=== PATIENT | male | born 1975 | race American Indian/Alaskan Native ===

== ENCOUNTER 2019-10-14 06:44 | Inpatient (IN) | payer OTHER ==
[2019-10-14] MEDS ORDERED: SODIUM CHLORIDE 0.9% 1000 ML 1,000 ML IV ONE (08:24)
[2019-10-14] MEDS ORDERED: INSULIN REGULAR, HUMAN 100 UNITS/1 ML IV ONE (08:24)
--- NOTE | 2019-10-14 08:32 | Emergency Department Report ---
ED General Adult HPI - General Chief complaint: Hyperglycemia Stated complaint: HIGH SUGAR Time Seen by Provider: 10/14/19 08:12 Source: patient Mode of arrival: Ambulatory Limitations: No Limitations - History of Present Illness Initial comments: 43 year old male with a past medical history of asthma and diabetes (on insulin) presents to the hospital with complaints of high blood sugar and medication noncompliance. Patient states he takes Humalog 25-30 units tid (sliding scale) and Levemir 40 units qhs. Yesterday patient only had a Humalog a.m. dose and did not have any of his other medication throughout the day. Patient states he went to work and forgot to bring his insulin. He tried a compensate by not eating all day. This evening patient admits to a lot of junk food use. Patient suspect that his sugar was high because he was being a lot and feeling thirsty. He denies dysuria or pain. He had 1-2 episodes of vomiting yesterday. 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 Pt denies being with the other patient. However the other patient informed us that they were together at the scene and was able to provide his name. Pt has his insulin but states he would need a refill soon. Patient states he is unable to follow up with his PMD due to recent loss of his insurance. - Related Data Allergies Allergy/AdvReac Type Severity Reaction Status Date / Time No Known Allergies Allergy Unverified 10/14/19 07:00 ED Review of Systems ROS: Stated complaint: HIGH SUGAR Other details as noted in HPI Comment: All other systems reviewed and negative ED Past Medical Hx - Past Medical History Previous Medical History?: Yes Hx Diabetes: Yes - Surgical History Past Surgical History?: Yes - Social History Smoking Status: Never Smoker Substance Use Type: None ED Physical Exam - General Limitations: No Limitations - Other Other exam information: General: No limitations, patient is alert in no acute distress Head exam: Atraumatic, normocephalic Eyes exam: Normal appearance, pupils equal reactive to light, extraocular movements intact ENT: Moist mucous membrane, normal oropharynx Neck exam: Normal inspection, full range of motion, no meningismus nontender Respiratory exam: Clear to auscultation bilateral, no wheezes, rales, crackles Cardiovascular: Normal rate and rhythm, normal heart sounds Abdomen: Soft, nondistended, and nontender, with normal bowel sounds, no rebound, or guarding Extremity: Full range of motion normal inspection no deformity Back: Normal Inspection, full range of motion, no tenderness Neurologic: Alert, oriented x3, cranial nerves intact, no motor or sensory deficit Psychiatric: normal affect, normal mood Skin: Warm, dry, intact ED Course Vital Signs 10/14/19 10/14/19 10/14/19 06:57 08:22 09:38 Temperature 98.3 F 98.4 F Pulse Rate 137 H 126 H Respiratory 18 18 Rate Blood Pressure 119/77 Blood Pressure 150/91 [Right] O2 Sat by Pulse 91 95 Oximetry 10/14/19 12:09 Temperature Pulse Rate 107 H Respiratory 16 Rate Blood Pressure Blood Pressure 136/87 [Right] O2 Sat by Pulse 99 Oximetry - Reevaluation(s) Reevaluation #1: 10/14/19 09:48 pt informed of + UDs for cocaine admits to cocaine use last night states went to the bathroom at the [facility] to urinate then passed out. He was attending on taken his insulin after he got out the bathroom but was confused. EMS did report that he refuses hospital transport and therefore they just brought his process treater. Patient states he can't recall refusing transport and states he was confused. ED Medical Decision Making - Lab Data Result diagrams: 10/14/19 08:35 10/14/19 08:35 Lab Results 10/14/19 10/14/19 10/14/19 Range/Units 07:05 08:23 08:35 WBC 18.2 H (4.5-11.0) K/mm3 RBC 5.74 H (3.65-5.03) M/mm3 Hgb 13.5 (11.8-15.2) gm/dl Hct 43.4 (35.5-45.6) % MCV 76 L (84-94) fl MCH 23 L (28-32) pg MCHC 31 L (32-34) % RDW 16.2 H (13.2-15.2) % Plt Count 388 (140-440) K/mm3 Lymph % (Auto) 4.9 L (13.4-35.0) % [place] % (Auto) 7.1 (0.0-7.3) % Eos % (Auto) 0.1 (0.0-4.3) % Baso % (Auto) 0.3 (0.0-1.8) % Lymph # 0.9 L (1.2-5.4) K/mm3 [place] # 1.3 H (0.0-0.8) K/mm3 Eos # 0.0 (0.0-0.4) K/mm3 Baso # 0.0 (0.0-0.1) K/mm3 Seg Neutrophils % 87.6 H (40.0-70.0) % Seg Neutrophils # 16.0 H (1.8-7.7) K/mm3 VBG pH (7.320-7.420) Sodium (137-145) mmol/L Potassium (3.6-5.0) mmol/L Chloride (98-107) mmol/L Carbon Dioxide (22-30) mmol/L Anion Gap mmol/L BUN (9-20) mg/dL Creatinine (0.8-1.5) mg/dL Estimated GFR ml/min BUN/Creatinine Ratio % Glucose (75-100) mg/dL POC Glucose 366 H 438 H (70-105) Ketones Quantitative (Negative) Calcium (8.4-10.2) mg/dL Total Creatine Kinase (55-170) units/L Troponin T (0.00-0.029) ng/mL Urine Color (Yellow) Urine Turbidity (Clear) Urine pH (5.0-7.0) Ur Specific [place] (1.003-1.030) Urine Protein (Negative) mg/dL Urine Glucose (UA) (Negative) mg/dL Urine Ketones (Negative) mg/dL Urine Blood (Negative) Urine Nitrite (Negative) Urine Bilirubin (Negative) Urine Urobilinogen (<2.0) mg/dL Ur Leukocyte Esterase (Negative) Urine WBC (Auto) (0.0-6.0) /HPF Urine RBC (Auto) (0.0-6.0) /HPF Urine Bacteria (Auto) (Negative) /HPF Urine Mucus /HPF Urine Opiates Screen Urine Methadone Screen Ur Barbiturates Screen Ur Phencyclidine Scrn Ur Amphetamines Screen U Benzodiazepines Scrn Urine Cocaine Screen U Marijuana (THC) Screen Drugs of Abuse Note 10/14/19 10/14/19 10/14/19 Range/Units 08:35 08:35 08:35 WBC (4.5-11.0) K/mm3 RBC (3.65-5.03) M/mm3 Hgb (11.8-15.2) gm/dl Hct (35.5-45.6) % MCV (84-94) fl MCH (28-32) pg MCHC (32-34) % RDW (13.2-15.2) % Plt Count (140-440) K/mm3 Lymph % (Auto) (13.4-35.0) % [place] % (Auto) (0.0-7.3) % Eos % (Auto) (0.0-4.3) % Baso % (Auto) (0.0-1.8) % Lymph # (1.2-5.4) K/mm3 [place] # (0.0-0.8) K/mm3 Eos # (0.0-0.4) K/mm3 Baso # (0.0-0.1) K/mm3 Seg Neutrophils % (40.0-70.0) % Seg Neutrophils # (1.8-7.7) K/mm3 VBG pH 7.320 (7.320-7.420) Sodium 138 (137-145) mmol/L Potassium 4.5 (3.6-5.0) mmol/L Chloride 97.1 L (98-107) mmol/L Carbon Dioxide 19 L (22-30) mmol/L Anion Gap 26 mmol/L BUN 15 (9-20) mg/dL Creatinine 1.2 (0.8-1.5) mg/dL Estimated GFR > 60 ml/min BUN/Creatinine Ratio 13 % Glucose 541 H* (75-100) mg/dL POC Glucose (70-105) Ketones Quantitative Negative (Negative) Calcium 9.7 (8.4-10.2) mg/dL Total Creatine Kinase 510 H (55-170) units/L Troponin T (0.00-0.029) ng/mL Urine Color (Yellow) Urine Turbidity (Clear) Urine pH (5.0-7.0) Ur Specific [place] (1.003-1.030) Urine Protein (Negative) mg/dL Urine Glucose (UA) (Negative) mg/dL Urine Ketones (Negative) mg/dL Urine Blood (Negative) Urine Nitrite (Negative) Urine Bilirubin (Negative) Urine Urobilinogen (<2.0) mg/dL Ur Leukocyte Esterase (Negative) Urine WBC (Auto) (0.0-6.0) /HPF Urine RBC (Auto) (0.0-6.0) /HPF Urine Bacteria (Auto) (Negative) /HPF Urine Mucus /HPF Urine Opiates Screen Urine Methadone Screen Ur Barbiturates Screen Ur Phencyclidine Scrn Ur Amphetamines Screen U Benzodiazepines Scrn Urine Cocaine Screen U Marijuana (THC) Screen Drugs of Abuse Note 10/14/19 10/14/19 10/14/19 Range/Units 08:47 08:47 Unknown WBC (4.5-11.0) K/mm3 RBC (3.65-5.03) M/mm3 Hgb (11.8-15.2) gm/dl Hct (35.5-45.6) % MCV (84-94) fl MCH (28-32) pg MCHC (32-34) % RDW (13.2-15.2) % Plt Count (140-440) K/mm3 Lymph % (Auto) (13.4-35.0) % [place] % (Auto) (0.0-7.3) % Eos % (Auto) (0.0-4.3) % Baso % (Auto) (0.0-1.8) % Lymph # (1.2-5.4) K/mm3 [place] # (0.0-0.8) K/mm3 Eos # (0.0-0.4) K/mm3 Baso # (0.0-0.1) K/mm3 Seg Neutrophils % (40.0-70.0) % Seg Neutrophils # (1.8-7.7) K/mm3 VBG pH (7.320-7.420) Sodium (137-145) mmol/L Potassium (3.6-5.0) mmol/L Chloride (98-107) mmol/L Carbon Dioxide (22-30) mmol/L Anion Gap mmol/L BUN (9-20) mg/dL Creatinine (0.8-1.5) mg/dL Estimated GFR ml/min BUN/Creatinine Ratio % Glucose (75-100) mg/dL POC Glucose (70-105) Ketones Quantitative (Negative) Calcium (8.4-10.2) mg/dL Total Creatine Kinase (55-170) units/L Troponin T < 0.010 (0.00-0.029) ng/mL Urine Color Straw (Yellow) Urine Turbidity Clear (Clear) Urine pH 5.0 (5.0-7.0) Ur Specific [place] 1.026 (1.003-1.030) Urine Protein <15 mg/dl (Negative) mg/dL Urine Glucose (UA) >=500 (Negative) mg/dL Urine Ketones 20 (Negative) mg/dL Urine Blood Sm (Negative) Urine Nitrite Neg (Negative) Urine Bilirubin Neg (Negative) Urine Urobilinogen < 2.0 (<2.0) mg/dL Ur Leukocyte Esterase Neg (Negative) Urine WBC (Auto) < 1.0 (0.0-6.0) /HPF Urine RBC (Auto) 2.0 (0.0-6.0) /HPF Urine Bacteria (Auto) 1+ (Negative) /HPF Urine Mucus Few /HPF Urine Opiates Screen Presumptive negative Urine Methadone Screen Presumptive negative Ur Barbiturates Screen Presumptive negative Ur Phencyclidine Scrn Presumptive negative Ur Amphetamines Screen Presumptive negative U Benzodiazepines Scrn Presumptive negative Urine Cocaine Screen Presumptive positive U Marijuana (THC) Screen Presumptive negative Drugs of Abuse Note Disclamer - EKG Data -: EKG Interpreted by Mn EKG shows normal: sinus rhythm, ST-T waves (lat t inv) Rate: tachycardia (108) - Radiology Data Radiology results: report reviewed - Medical Decision Making pt with mild dka insulin bolus, ns given in ed case d/w with hospitalist who will add additional orders + cocaine with another ed pt last night with confusion ? unresponsiveness at the scene nonfocal exam with normal mental status in ed ICU admission orderes placed - Differential Diagnosis drug use, med noncompliance, med noncompliance Critical Care Time: No Critical care attestation.: If time is entered above; I have spent that time in minutes in the direct care of this critically ill patient, excluding procedure time. ED Disposition Clinical Impression: DKA (diabetic ketoacidoses), Noncompliance with medication regimen, Cocaine abuse Disposition: OP ADMIT IP TO THIS HOSP Is pt being admited?: Yes Condition: Stable Time of Disposition: 09:50 (Dr Summers/hosp)
[2019-10-14 08:50] LABS: Basophils % (Auto) 0.3 % (0.0-1.8); Eosinophils % (Auto) 0.1 % (0.0-4.3); Lymphocytes # (Auto) 0.9 K/mm3 (1.2-5.4); Lymphocytes % (Auto) 4.9 % (13.4-35.0); Mean Corpuscular HGB Conc 31 % (32-34); Mean Corpuscular Volume 76 fl (84-94); Monocytes # (Auto) 1.3 K/mm3 (0.0-0.8); Monocytes % (Auto) 7.1 % (0.0-7.3); Platelet Count 388 K/mm3 (140-440); Red Blood Count 5.74 M/mm3 (3.65-5.03); Red Cell Distribution Width 16.2 % (13.2-15.2)
[2019-10-14 08:56] LABS: Hematocrit 43.4 % (35.5-45.6); Hemoglobin 13.5 gm/dl (11.8-15.2)
[2019-10-14 09:08] LABS: BUN/Creatinine Ratio 13; Blood Urea Nitrogen 15 mg/dL (9-20); Calcium 9.7 mg/dL (8.4-10.2); Hemolysis Index 5
[2019-10-14 09:12] LABS: Amphetamine Screen,Urine PRESUMPTIVE NEGATIVE; Benzodiazepines Screen,Urine PRESUMPTIVE NEGATIVE; Cannabinoid Screen,Urine PRESUMPTIVE NEGATIVE; Methadone Screen,Urine PRESUMPTIVE NEGATIVE; Opiate Screen,Urine PRESUMPTIVE NEGATIVE
[2019-10-14 09:15] LABS: Bilirubin,Urine NEG (Negative); Blood,Urine SM (Negative); Color,Urine Straw (Yellow); Mucus,Urine FEW /HPF; Protein,Urine <15 mg/dL mg/dL (Negative); Urobilinogen,Urine < 2.0 mg/dL (<2.0); WBC,Urine < 1.0 /HPF (0.0-6.0)
[2019-10-14 09:22] LABS: Bacteria,Urine 1+ /HPF (Negative)
[2019-10-14 09:24] LABS: Cocaine Screen,Urine PRESUMPTIVE POSITIVE
--- NOTE | 2019-10-14 11:02 | History and Physical Report ---
History of Present Illness Date of examination: 10/14/19 Date of admission: 10/14/19 09:59 Chief complaint: High blood sugars History of present illness: Patient is a 43 year old Black man with a history of chronic pains syndrome from OA of knees, Cocaine abuse, Asthma and IDDM type 2 (started on pills in his late 30s) with prior DKA who initially presented to the ED as a guest of another patient admitted to my service for cocaine encephalopathy with malignant hyp ertension. He felt that his blood sugars was high and nauseous. He reports being confused earlier in the day with an episode of N/V and syncope at a gas station. He admits to missing his insulin doses because he felt ill most likely after his cocaine use. He denies headaches, visual disturbances, cp, SOB, fever, chills, head trauma. He admits to doing "a couple of lines" of cocaine prior to this i llness. Patient also communicated to me that he takes Humalog 25-30 units tid (sliding scale) and Levemir 40 units qhs. He has been out to the Levemir. Yesterday patient only had a Humalog a.m. dose and did not have any of his other medication throughout the day. Patient states he went to work and forgot to bring his insulin. He tried a compensate by not eating all day. + UDS for cocaine. He admits to cocaine use last night and reports going to the bathroom at the [facility] gas station to urinate then he had n/v and passed out. EMS was called because his lady friend was passed out in the car and he was confused, but refused to be transport to the hospital. 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 FH: Aunt CABG in her 50s, mother of RA ROS: Constitutional: denies: fever ENT: denies: throat or neck pain Respiratory: denies: cough, shortness of breath Cardiovascular: denies: chest pain Endocrine: denies unexplained weight loss or gain Gastrointestinal: denies: abdominal pain, nausea Genitourinary: denies: dysuria Rectal: denies no incontinence, no bleeding, no itching, no discharge Musculoskeletal: denies swelling, myaglia, muscle weakness Skin: denies: rash Neurological: denies: headache Hematological/Lymphatic: denies: easy bleeding or easy bruising Allergic/Immunologic: no urticaria, no allergic rhinitis, no anaphylaxis Psych: denies sadness or hopelessness, SI/HI Medications and Allergies Allergies Allergy/AdvReac Type Severity Reaction Status Date / Time No Known Allergies Allergy Unverified 10/14/19 07:00 Exam - Physical Exam Narrative exam: Gen: WDWN, NAD, Awake, Alert, Orientated x 3 HEENT: NCAT, EOMI, PERRL, OP Clear Neck: supple, no adenopathy, no thyromegaly, no JVD CVS/Heart: RRR, normal S1S2, pulses present bilaterally Chest/Lungs: CTA B, Symmetrical chest expansion, good air entry bilaterally GI/Abdomen: soft, NTND, good bowel sounds, no guarding or rebound /Bladder: no suprapubic tenderness, no CVA or paraspinal tenderness Extermity/Skin: no c/c/e, no obvious rash MSK: FROM x 4 Neuro: CN 2-12 grossly intact, no new focal deficits Psych: calm - Constitutional Vitals: Temp Pulse Resp BP Pulse Ox 98.4 F 126 H 18 150/91 95 10/14/19 09:38 10/14/19 08:22 10/14/19 08:22 10/14/19 08:22 10/14/19 08:22 Results - Labs CBC & Chem 7: 10/14/19 08:35 10/14/19 08:35 Labs: Laboratory Last Values WBC 18.2 K/mm3 (4.5-11.0) H 10/14/19 08:35 RBC 5.74 M/mm3 (3.65-5.03) H 10/14/19 08:35 Hgb 13.5 gm/dl (11.8-15.2) 10/14/19 08:35 Hct 43.4 % (35.5-45.6) 10/14/19 08:35 MCV 76 fl (84-94) L 10/14/19 08:35 MCH 23 pg (28-32) L 10/14/19 08:35 MCHC 31 % (32-34) L 10/14/19 08:35 RDW 16.2 % (13.2-15.2) H 10/14/19 08:35 Plt Count 388 K/mm3 (140-440) 10/14/19 08:35 Lymph % (Auto) 4.9 % (13.4-35.0) L 10/14/19 08:35 [place] % (Auto) 7.1 % (0.0-7.3) 10/14/19 08:35 Eos % (Auto) 0.1 % (0.0-4.3) 10/14/19 08:35 Baso % (Auto) 0.3 % (0.0-1.8) 10/14/19 08:35 Lymph # 0.9 K/mm3 (1.2-5.4) L 10/14/19 08:35 [place] # 1.3 K/mm3 (0.0-0.8) H 10/14/19 08:35 Eos # 0.0 K/mm3 (0.0-0.4) 10/14/19 08:35 Baso # 0.0 K/mm3 (0.0-0.1) 10/14/19 08:35 Seg Neutrophils % 87.6 % (40.0-70.0) H 10/14/19 08:35 Seg Neutrophils # 16.0 K/mm3 (1.8-7.7) H 10/14/19 08:35 VBG pH 7.320 (7.320-7.420) 10/14/19 08:35 Sodium 138 mmol/L (137-145) 10/14/19 08:35 Potassium 4.5 mmol/L (3.6-5.0) 10/14/19 08:35 Chloride 97.1 mmol/L (98-107) L 10/14/19 08:35 Carbon Dioxide 19 mmol/L (22-30) L 10/14/19 08:35 Anion Gap 26 mmol/L 10/14/19 08:35 BUN 15 mg/dL (9-20) 10/14/19 08:35 Creatinine 1.2 mg/dL (0.8-1.5) 10/14/19 08:35 Estimated GFR > 60 ml/min 10/14/19 08:35 BUN/Creatinine Ratio 13 % 10/14/19 08:35 Glucose 541 mg/dL (75-100) H* 10/14/19 08:35 POC Glucose 438 (70-105) H 10/14/19 08:23 Ketones Quantitative Negative (Negative) 10/14/19 08:35 Calcium 9.7 mg/dL (8.4-10.2) 10/14/19 08:35 Total Creatine Kinase 510 units/L (55-170) H 10/14/19 08:35 Troponin T < 0.010 ng/mL (0.00-0.029) 10/14/19 Unknown Urine Color Straw (Yellow) 10/14/19 08:47 Urine Turbidity Clear (Clear) 10/14/19 08:47 Urine pH 5.0 (5.0-7.0) 10/14/19 08:47 Ur Specific [place] 1.026 (1.003-1.030) 10/14/19 08:47 Urine Protein <15 mg/dl mg/dL (Negative) 10/14/19 08:47 Urine Glucose (UA) >=500 mg/dL (Negative) 10/14/19 08:47 Urine Ketones 20 mg/dL (Negative) 10/14/19 08:47 Urine Blood Sm (Negative) 10/14/19 08:47 Urine Nitrite Neg (Negative) 10/14/19 08:47 Urine Bilirubin Neg (Negative) 10/14/19 08:47 Urine Urobilinogen < 2.0 mg/dL (<2.0) 10/14/19 08:47 Ur Leukocyte Esterase Neg (Negative) 10/14/19 08:47 Urine WBC (Auto) < 1.0 /HPF (0.0-6.0) 10/14/19 08:47 Urine RBC (Auto) 2.0 /HPF (0.0-6.0) 10/14/19 08:47 Urine Bacteria (Auto) 1+ /HPF (Negative) 10/14/19 08:47 Urine Mucus Few /HPF 10/14/19 08:47 Urine Opiates Screen Presumptive negative 10/14/19 08:47 Urine Methadone Screen Presumptive negative 10/14/19 08:47 Ur Barbiturates Screen Presumptive negative 10/14/19 08:47 Ur Phencyclidine Scrn Presumptive negative 10/14/19 08:47 Ur Amphetamines Screen Presumptive negative 10/14/19 08:47 U Benzodiazepines Scrn Presumptive negative 10/14/19 08:47 Urine Cocaine Screen Presumptive positive 10/14/19 08:47 U Marijuana (THC) Screen Presumptive negative 10/14/19 08:47 Drugs of Abuse Note Disclamer 10/14/19 08:47 Assessment and Plan Assessment and plan: Patient is a 43 year old Black man with a history of chronic pains syndrome from OA of knees, Cocaine abuse, Asthma and IDDM type 2 (started on pills in his late 30s) with prior DKA who initially presented to the ED as a guest of another patient admitted to my service for cocaine encephalopathy with malignant hypertension. He felt that his blood sugars was high and nauseous. He reports being confused earlier in the day with an episode of N/V and syncope at a gas station. He admits to missing his insulin doses because he felt ill most likely after his cocaine use. He denies headaches, visual disturbances, cp, SOB, fever, chills, head trauma. He admits to doing "a couple of lines" of cocaine prior to this illness. Patient also communicated to me that he takes Humalog 25-30 units tid (sliding scale) and Levemir 40 units qhs. He has been out to the Levemir. Yesterday patient only had a Humalog a.m. dose and did not have any of his other medication throughout the day. Patient states he went to work and forgot to bring his insulin. He tried a compensate by not eating all day. + UDS for cocaine. He admits to cocaine use last night and reports going to the bathroom at the [facility] gas station to urinate then he had n/v and passed out. EMS was called because his lady friend was passed out in the car and he was confused, but refused to be transport to the hospital. 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
[2019-10-14] MEDS ORDERED: MORPHINE 2 MG/1 ML INJ IV PRN (11:20)
[2019-10-14] MEDS ORDERED: POLYETHYLENE GLYCOL 3350 17 GM POWDER PO PRN (11:20)
[2019-10-14] MEDS ORDERED: ACETAMINOPHEN 325 MG TAB PO PRN (11:20)
[2019-10-14] MEDS ORDERED: HYDROcodone/ACETAMINOPHEN 5-325 MG TAB PO PRN (11:20)
[2019-10-14] MEDS ORDERED: METOCLOPRAMIDE 10 MG/2 ML INJ IV PRN (11:20)
[2019-10-14] MEDS ORDERED: ONDANSETRON 4 MG/2 ML INJ IV PRN (11:20)
[2019-10-14] MEDS ORDERED: hydrALAZINE 20 MG/1 ML INJ IV PRN (11:20)
[2019-10-14] MEDS ORDERED: DEXTROSE 50% IN WATER (25GM) 50 ML SYRINGE IV PRN (11:23)
[2019-10-14] MEDS ORDERED: PANTOPRAZOLE 40 MG TAB PO ONE (11:29)
[2019-10-14] MEDS ORDERED: HEPARIN 5,000 UNIT/1 ML VIAL ONE (11:29)
--- NOTE | 2019-10-14 11:58 | XRay Report ---
CHEST 1 VIEW 10/14/2019 11:25 AM INDICATION / CLINICAL INFORMATION: cough after N/v. COMPARISON: None available. FINDINGS: SUPPORT DEVICES: None. HEART / MEDIASTINUM: Heart is upper normal size for AP portable technique. LUNGS / PLEURA: No significant pulmonary or pleural abnormality. No pneumothorax. ADDITIONAL FINDINGS: No significant additional findings. IMPRESSION: 1. No acute findings. Signer Name: Latanya Morocho MD Signed: 10/14/2019 11:54 AM Workstation Name: [id number]
[2019-10-14] MEDS: INSULIN LISPRO 100 UNIT/ML SUB-Q SCH ×3 (12:40→22:04)
[2019-10-14] MEDS: SODIUM CHLORIDE 0.9% 1000 ML 1,000 ML IV SCH ×2 (13:31→22:03)
[2019-10-14] MEDS: INSULIN GLARGINE 100 UNITS/ML SUB-Q SCH (14:21)
[2019-10-15] MEDS: INSULIN LISPRO 100 UNIT/ML SUB-Q SCH ×4 (02:20→12:20)
[2019-10-15] MEDS: INSULIN GLARGINE 100 UNITS/ML SUB-Q SCH ×2 (02:23→13:56)
[2019-10-15] MEDS: SODIUM CHLORIDE 0.9% 1000 ML 1,000 ML IV SCH (05:27)
[2019-10-15 07:10] LABS: Hematocrit 35.6 % (35.5-45.6); Mean Corpuscular HGB Conc 31 % (32-34); Mean Corpuscular Volume 75 fl (84-94); Platelet Count 289 K/mm3 (140-440); Red Blood Count 4.74 M/mm3 (3.65-5.03); Red Cell Distribution Width 15.9 % (13.2-15.2)
[2019-10-15 07:31] LABS: BUN/Creatinine Ratio 16; Blood Urea Nitrogen 13 mg/dL (9-20); Calcium 8.4 mg/dL (8.4-10.2); Hemolysis Index 9
[2019-10-15] MEDS ORDERED: PANTOPRAZOLE 40 MG TAB PO SCH (10:00)
--- NOTE | 2019-10-15 11:33 | Discharge Summary ---
Providers - Providers Date of Admission: 10/14/19 09:59 Date of discharge: 10/15/19 Attending physician: MARIIA VALIENTE Hospitalization Condition: Stable Hospital course: Patient is a 43 year old Black man with a history of chronic pains syndrome from OA of knees, Cocaine abuse, Asthma and IDDM type 2 (started on pills in his late 30s) with prior DKA who initially presented to the ED as a guest of another patient admitted to my service for cocaine encephalopathy with malignant hypertension. He felt that his blood sugars was high and nauseous. He reports being confused earlier in the day with an episode of N/V and syncope at a gas station. He admits to missing his insulin doses because he felt ill most likely after his cocaine use. He denies headaches, visual disturbances, cp, SOB, fever, chills, head trauma. He admits to doing "a couple of lines" of cocaine prior to this illness. Patient also communicated to me that he takes Humalog 25-30 units tid (sliding scale) and Levemir 40 units qhs. He has been out to the Levemir. Yesterday patient only had a Humalog a.m. dose and did not have any of his other medication throughout the day. Patient states he went to work and forgot to bring his insulin. He tried a compensate by not eating all day. + UDS for cocaine. He admits to cocaine use last night and reports going to the bathroom at the [facility] gas station to urinate then he had n/v and passed out. EMS was called because his lady friend was passed out in the car and he was confused, but refused to be transport to the hospital. 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; Education done CPS/OA knees; iv morphine Asthma h/o: prn albuterol DVT ppx sq heparin Disposition: - TO HOME OR SELFCARE Time spent for discharge: 35 minutes Core Measure Documentation - Palliative Care Palliative Care/ Comfort Measures: Not Applicable - Core Measures Any of the following diagnoses?: none - VTE Discharge Requirements Deep Vein Thrombosis/Pulmonary Embolism Present on Admission: No Has pt received <5 days of overlap therapy or INR<2.0: No Anticoagulant overlap therapy prescribed at discharge: No Contraindication No Overlap Therapy order at DC: Not Indicated Exam - Physical Exam Narrative exam: Gen: WDWN, NAD, Awake, Alert, Orientated x 3 HEENT: NCAT, EOMI, PERRL, OP Clear Neck: supple, no adenopathy, no thyromegaly, no JVD CVS/Heart: RRR, normal S1S2, pulses present bilaterally Chest/Lungs: CTA B, Symmetrical chest expansion, good air entry bilaterally GI/Abdomen: soft, NTND, good bowel sounds, no guarding or rebound /Bladder: no suprapubic tenderness, no CVA or paraspinal tenderness Extermity/Skin: no c/c/e, no obvious rash MSK: FROM x 4 Neuro: CN 2-12 grossly intact, no new focal deficits Psych: calm - Constitutional Vitals: Temp Pulse Resp BP Pulse Ox 97.5 F L 78 16 98/68 95 10/15/19 04:42 10/15/19 04:42 10/15/19 04:42 10/15/19 04:42 10/15/19 04:42 Plan Activity: other (no strenous activity unless cleared by PCP) Diet: low salt, diabetic Special Instructions: record blood sugar diary (three times a day) Follow up with: [facility] [Provider Group] - 7 Days Prescriptions: Insulin Detemir [Levemir VIAL] 10 unit SQ Q12H #1 vial Insulin Regular, Human [Novolin R] 1 dose SQ ACHS PRN #1 vial PRN Reason: Hyperglycemia
[2019-10-15 14:08] VITALS: BP 117/76
[2019-10-15] MEDS ORDERED: HEPARIN 5,000 UNIT/1 ML VIAL SUB-Q SCH (22:00)
== END 2019-10-15 14:45 | disposition home or self-care (01) | DRG 637 ==
LOC: ED 06:44 → CC1 09:59 → 3A 11:43
PROVIDERS: ADMIT Internal Medicine; ATTEND Internal Medicine
DX: E11.65 Type 2 diabetes mellitus with hyperglycemia (principal); G92 Toxic encephalopathy; R65.10 Systemic inflammatory response syndrome (SIRS) of non-infectious origin without acute organ dysfunction; F14.10 Cocaine abuse, uncomplicated; Z91.14 Patient's other noncompliance with medication regimen; J45.909 Unspecified asthma, uncomplicated; Z79.4 Long term (current) use of insulin; M17.10 Unilateral primary osteoarthritis, unspecified knee; Z71.51 Drug abuse counseling and surveillance of drug abuser
CPT/HCPCS: 36415; 71045; 80048; 80307; 80320; 81001; 82010; 82550; 82805; 82962; 84443; 84484; 85025; 85027; 87040; 93005; 93010; 96374; G0378; G0480; J1644; J1815; J7030